=== PATIENT | male | born 1990 | race African-American/Black ===

== ENCOUNTER 2020-12-07 11:00 | Observation (INO) ==
[2020-12-07] MEDS ORDERED: ANCEF 1 GRAM IV PREMIX* 2 G/100 ML BAG IV ONE (12:55)
[2020-12-07] MEDS ORDERED: LR 1000 ML IV 1,000 ML IV ONE ×2 (12:55→14:55)
[2020-12-07] MEDS ORDERED: BYFAVO INJ IVP ONE (13:06)
[2020-12-07] MEDS ORDERED: NAROPIN 0.75% EPI ONE (13:06)
[2020-12-07 13:21] VITALS: BMI 26.9
[2020-12-07] MEDS ORDERED: MARCAINE 0.25% INJ ONE (13:56)
[2020-12-07] MEDS ORDERED: TORADOL 30 MG VIAL ONE ×2 (14:50→15:20)
[2020-12-07] MEDS ORDERED: FENTANYL INJ 100 mcg ONE ×2 (14:50→15:41)
[2020-12-07] MEDS ORDERED: BRIDION ONE ×2 (14:50→15:20)
[2020-12-07] MEDS ORDERED: ZEMURON 50 MG VIAL ONE ×2 (14:50→15:20)
[2020-12-07] MEDS ORDERED: OFIRMEV IV 1000 MG VIAL 1,000 MG/100 ML VIAL IV ONE (14:50)
[2020-12-07] MEDS ORDERED: SUPRANE ONE (14:55)
[2020-12-07] MEDS ORDERED: DIPRIVAN VIAL ONE (15:20)
[2020-12-07] MEDS ORDERED: LTA KIT LIDOCAINE 4% ONE (15:20)
[2020-12-07] MEDS ORDERED: ZOFRAN INJ 4 MG VIAL ONE (15:20)
[2020-12-07] MEDS ORDERED: DECADRON INJ ONE (15:20)
[2020-12-07] MEDS ORDERED: VERSED ONE (15:20)
[2020-12-07] MEDS ORDERED: XYLOCAINE 2 % (PLAIN) ONE (15:20)
[2020-12-07] MEDS ORDERED: NS IRRIGATION* 500 ML IR ONE (16:13)
[2020-12-07] MEDS ORDERED: REGLAN INJ 10 MG VIAL IVP PRN (17:53)
[2020-12-07] MEDS ORDERED: DILAUDID INJ IVP PRN ×2 (17:53→18:34)
[2020-12-07] MEDS ORDERED: ZOFRAN INJ 4 MG VIAL IVP PRN ×2 (17:53→18:34)
[2020-12-07] MEDS ORDERED: BENADRYL INJ 50 MG VIAL IVP PRN (17:53)
[2020-12-07] MEDS ORDERED: BARHEMSYS INJ IVP PRN (17:53)
[2020-12-07] MEDS ORDERED: PHENERGAN INJ 25 MG IM PRN (17:53)
[2020-12-07] MEDS ORDERED: TYLENOL 325 MG TAB PO PRN (18:34)
[2020-12-07] MEDS ORDERED: COLACE CAP 100 MG PO SCH (21:00)
[2020-12-07] MEDS: PERCOCET TAB 5/325 MG PO PRN (21:41)
[2020-12-08 07:03] LABS: BLOOD UREA NITROGEN 11 mg/dL (7-18); CALCIUM 9.3 mg/dL (8.5-10.1); CARBON DIOXIDE 26.9 mmol/L (21-32); CHLORIDE 106 mmol/L (98-107); COR NA(FOR HYPERGLY) 145 mmol/L (136-145); CREATININE 1.24 mg/dL (0.70-1.30); SODIUM 144 mmol/L (136-145); eGFR NON BLACK RACES > 60 (>60)
[2020-12-08] MEDS: PERCOCET TAB 5/325 MG PO PRN ×2 (08:52→15:36)
[2020-12-08] MEDS ORDERED: LOVENOX INJ 40 MG SYR SC SCH (09:00)
[2020-12-08 12:13] VITALS: BP 126/59
--- NOTE | 2020-12-08 13:58 | PCM.PROG ---
Progress Note Past Medical Family Social History Allergies: Allergies No Known Drug Allergies Allergy (Verified 12/07/20 12:58) Vital Signs and I&O's Vital Signs: Temperature 98.4 F Pulse Rate [Bilateral Brachial 56 ] Pulse Rate 80 Respiratory Rate 18 Blood Pressure [Left Arm] 126/59 Blood Pressure [Right Arm] 120/58 Blood Pressure 152/69 O2 Sat by Pulse Oximetry 96 Intake and Output: Intake & Output 12/05/20 12/06/20 12/07/20 12/08/20 23:59 23:59 23:59 23:59 Intake Total 1720 / 1720 470 / 470 Output Total 710 / 710 5 / 5 Balance 1010 / 1010 465 / 465 Physical Exam Mood Description: Calm Speech Pattern: Clear and Appropriate Laboratory and Diagnostics Result Diagrams: 12/08/20 05:32 12/08/20 05:32 Labs: Laboratory Sodium 144 mmol/L (136-145) 12/08/20 05:32 Corrected Sodium 145 mmol/L (136-145) 12/08/20 05:32 Potassium 4.0 mmol/L (3.5-5.1) 12/08/20 05:32 Chloride 106 mmol/L (98-107) 12/08/20 05:32 Carbon Dioxide 26.9 mmol/L (21-32) 12/08/20 05:32 BUN 11 mg/dL (7-18) 12/08/20 05:32 Creatinine 1.24 mg/dL (0.70-1.30) 12/08/20 05:32 Est GFR (MDRD) Af Amer > 60 (>60) 12/08/20 05:32 Est GFR (MDRD) Non-Af > 60 (>60) 12/08/20 05:32 Glucose 145 mg/dL (65-99) H 12/08/20 05:32 Calcium 9.3 mg/dL (8.5-10.1) 12/08/20 05:32 Tissue Pathology To follow 12/07/20 16:20 Plan (1) Bone cyst: Status: Acute
--- NOTE | 2020-12-08 14:16 | NOTE.SOAP ---
Soap Note Note for Day of Date of Exam: 12/08/20 Subjective Data Subjective Data: Mr. Moyer is a 30 year old male who is s/p left surgery, DOS was 12/07/20. Dressings are intact and the left LE was elevated over 2 pillows. He denies any pain, 0/10. He has not put any weigth on the left LE. He denies any f/c/n/v/sob/calf pain. Objective Data Objective Data: He is alert and oriented x 3. Left sided focused. Dressing intact with no strike through. External fixation intact Skin is well coapted and the Sutures intact No calf pain No sensation from the ankle down. He is unable to move his toes Cap fill less than 3 seconds No active drainage. Assessment Assessment: Mr. Moyer is a 30 year old male who is s/p left LE surgery for bone cyst and external fixation application. No pain. No sensation and he is unable to move his toes which is likely from the nerve block. Sutures intact and no active drainage. He is with VSS and NAD. Pain is well controlled. Plan Plan: From the foot and ankle standpoint he is ok for discharge. He is follow up with Dr. Chino Mera in one week Pending Physical therapy evaluation He is to keep the dressing clean, dry and intact until his first post op visit Prescriptions in the chart He is to be partial weight bearing. Please do not hesitate to contact me with any questions or concerns Romeo Noel DPM, Fellow [phone]
== END 2020-12-08 16:10 | disposition home or self-care (01) ==
LOC: MED/SURG 11:00 → SURG1 11:00 → EDUNIT# 14:15 → MED/SURG 17:52
PROVIDERS: ADMIT Obstetrics & Gynecology Obstetrics; ATTEND Obstetrics & Gynecology Obstetrics
PROC: APEXFIX (2020-12-07 14:30)
DX: M21.42 Flat foot [pes planus] (acquired), left foot; M24.672 Ankylosis, left ankle; M85.572 Aneurysmal bone cyst, left ankle and foot